=== PATIENT | female | born 2005 | race Two or more races ===

== ENCOUNTER 2023-04-14 07:55 | Emergency (ER) | payer OTHER ==
[2023-04-14 08:04] VITALS: BP 122/79; PULSE 95; RESP 17; TEMP 98.1; BMI 26.5
[2023-04-14] MEDS ORDERED: DIPHTH,PERTUSS(ACELL),TET 0.5 ML DISP.SYRIN IM ONE ×2 (08:21→08:48)
[2023-04-14] MEDS ORDERED: ACETAMINOPHEN 500 MG TABLET (FP) PO ONE (08:21)
[2023-04-14] MEDS ORDERED: ACETAMINOPHEN 500 MG TABLET (FP) ONE (08:47)
[2023-04-14] MEDS ORDERED: ALBUTEROL SO4 0.083% IH SOL 2.5 MG/3 ML VIAL.NEB. NEB ONE (09:07)
[2023-04-14] MEDS ORDERED: guaiFENesin 200 MG/10 ML 10 ML UNIT-DOSE CUPS PO ONE (09:08)
== END 2023-04-14 09:59 | disposition home or self-care (01) ==
LOC: FER 07:55
PROC: 0HQFXZZ Repair Right Hand Skin, External Approach (ICD-10-PCS; principal; 2023-04-14)
PROC: 3E0234Z Introduction of Serum, Toxoid and Vaccine into Muscle, Percutaneous Approach (ICD-10-PCS; 2023-04-14)
DX: S61.210A Laceration without foreign body of right index finger without damage to nail, initial encounter (principal); S00.83XA Contusion of other part of head, initial encounter; W01.198A Fall on same level from slipping, tripping and stumbling with subsequent striking against other object, initial encounter; Y92.219 Unspecified school as the place of occurrence of the external cause
CPT/HCPCS: 12001-25; 73140-TC-RT-FY; 90471; 90715; 99283-25

== ENCOUNTER 2023-04-21 15:41 | Emergency (ER) | payer OTHER ==
[2023-04-21 15:49] VITALS: BP 119/58; PULSE 81; RESP 18; TEMP 98.4; BMI 22.4
== END 2023-04-21 16:21 | disposition home or self-care (01) ==
LOC: FER 15:41
DX: Z48.02 Encounter for removal of sutures (principal)
CPT/HCPCS: 99281-25